=== PATIENT | male | born 1960 | race Caucasian/White ===

== ENCOUNTER → 2016-07-23 | Outpatient (CLI) | payer OTHER ==
[~2016-07-23] MED LIST: ASPI325T45 PO; CHOL200027 PO; PRLSR20 PO; ZCR40 PO
[2016-07-23 09:35] LABS: BASO % 0.8 %; BASO ABS # 0.06 K/uL (0-0.2); COMPLETE YES; EOS % 2.8 %; HEMATOCRIT 44.2 % (42-52); IG% 0.4 %; LYMPH ABS # 2.16 K/uL (1.2-3.4); MEAN CELL VOLUME 86.7 fL (80-100); MEAN CORPUSCULAR HEMOGLOBIN 29.2 pg (25-34); MEAN CORPUSCULAR HGB CONC 33.7 g/dl (32-36); MEAN PLATELET VOLUME 10.2 fL (7.4-10.4); MONO % 8.4 %; NEUT % 58.6 %; PLATELET COUNT 248 K/uL (130-400); WHITE BLOOD COUNT 7.46 K/uL (4.8-10.8)
[2016-07-23 09:51] LABS: BLOOD UREA NITROGEN 11 mg/dl (7-18); BUN/CREATININE RATIO 11.3 (10-20); CALCIUM 9.1 mg/dl (8.5-10.1); CARBON DIOXIDE 28 mmol/L (21-32); CHLORIDE 104 mmol/L (98-107); CREATININE 0.94 mg/dl (0.60-1.40); GLUCOSE 98 mg/dl (70-99); POTASSIUM 4.4 mmol/L (3.5-5.1); SODIUM 140 mmol/L (136-145)
== END | disposition home or self-care (01) ==
LOC: C.CPL 08:03
PROVIDERS: ATTEND Orthopaedic Surgery
DX: M65.331 Trigger finger, right middle finger (principal)

== ENCOUNTER 2017-03-08 15:55 | Emergency (ER) | payer OTHER ==
[~2017-03-08] VITALS: Ht 172.7 cm; Wt 108.0 kg
[2017-03-08 16:29] VITALS: BP 122/81; PULSE 94; TEMP 37.2; O2SAT 96; Ht 172.7 cm; Wt 108.0 kg
[2017-03-08] MEDS ORDERED: ALLO300T2 PO (17:02)
[2017-03-08] MEDS ORDERED: GENT0.3S6 OPL (17:02)
[2017-03-08] MEDS ORDERED: PROPARACAINE HCL 0.5% OP SOLN 15 ML BTL OP STA (17:27)
--- NOTE | 2017-03-08 18:14 | EMERGENCY ROOM VISIT NOTE ---
History First contact with patient: 17:15 Chief Complaint: EYE PAIN Stated Complaint: LEFT EYE PAIN History of Present Illness The patient is a 56 year old male who presents to the Emergency Room with complaints of severe left eye pain that has been going on for 5 days. The patient denies any injury to the eye. He simply woke up with it hurting. He also notes redness. His vision in the eyes blurry. He is very sensitive to light. He does not wear contacts. He denies any fever or chills. The I also hurts with movements of the eye. Review of Systems 6 system review negative. Please see pertinent positives in the history of present illness section. Past Medical/Surgical History Otherwise healthy Social History Smoking Status: Never Smoker Current/Historical Medications Scheduled Aspirin (Aspirin), 325 MG PO QAM Cholecalciferol (Vitamin D-3), 4,000 INTER.UNIT PO QAM Gentamicin Sulfate (Ophth) (Gentamicin 0.3% Oph), 1 DROP OPL Q4H Omeprazole (Prilosec), 20 MG PO QAM Simvastatin (Simvastatin), 40 MG PO QAM Scheduled PRN Allopurinol (Zyloprim), 300 MG PO DAILY PRN for Gout Flares Physical Exam Vital Signs Date Time Temp Pulse Resp B/P (MAP) Pulse Ox O2 Delivery O2 Flow Rate FiO2 03/08/17 16:29 37.2 94 18 122/81 96 Room Air Right Eye Acuity: 20/25 Left Eye Acuity: 20/200 Physical Exam VITALS: Vitals are noted on the nurse's note and reviewed by myself. Vital signs stable. GENERAL: 56-year-old male, very uncomfortable in appearance. SKIN: The skin was without rashes, erythema, edema, or bruising. HEAD: Normocephalic atraumatic. EYES: Pupils equal round and reactive to light and accommodation. Extraocular muscles intact. Significant conjunctival injection noted. No conjunctival hemorrhages noted. Insert Slit Lamp Exam Slit Lamp Examination was performed of the left eye(s). Alcaine drops were applied to the affected eye(s) for proper anesthetization. The affected eye(s) were stained with Fluorescein stain to precipitate adequate visualization of any conjunctival/scleral excoriations or ulcers. The patients face was comfortably rested on the chin guard of the slit lamp apparatus. The lights were dimmed and the affected eye(s) were thoroughly examined under microscopy using the blue light. No uptake was present In the left eye.. Additionally, the eye(s) were examined under microscopy using the regular light. Close examination revealed no corneal abnormalities. No hyphema.. Patient tolerated the procedure well and no complications were met. Pressures were obtained right eye: 13, 13, 14 left eye: 27, 29, 19 MUSCULOSKELETAL: Normal gait. Strength 5/5 throughout. NEURO: Patient was alert and oriented to person place and time. Normal sensation to touch. No focal neurological deficits. Medical Decision & Procedures ER Provider Diagnostic Interpretation: Orbital CT IMPRESSION: 1. No ocular or orbital masses identified. 2. No evidence of acute sinusitis. 3. If the patient has persistent unexplained orbital pain, ophthalmologic consultation should be obtained in follow-up Electronically signed by: Alvino Lakhani M.D. 03/08/2017 7:25 PM Dictated Date/Time: 03/08/2017 7:21 PM Medications Administered Medications (Trade) Dose Ordered Sig/Flaquito Route Start Time Stop Time Status Last Admin Dose Admin Proparacaine HCl (Alcaine 0.5% Oph Soln) 2 drops ONE STAT OP 03/08/17 17:27 03/08/17 17:28 DC 03/08/17 17:35 2 DROPS Ibuprofen (Motrin Tab) 600 mg NOW STAT PO 03/08/17 18:33 03/08/17 18:35 DC 03/08/17 19:05 600 MG Erythromycin (Erythromycin Oph Oint) 1 appln NOW ONCE OPL 03/08/17 20:15 03/08/17 20:16 DC 03/08/17 20:20 1 APPLN ED Course The patient was seen and examined A slip exam was performed CT of the orbits was performed and reviewed The case was discussed with my supervising physician and then Dr. Mark from ophthalmology. The patient was reassessed. We discussed the results of his workup. He voiced understanding. Erythromycin ointment was applied to the eye. Discharge instructions were reviewed, and he was discharged in good condition Medical Decision Differential diagnosis: Conjunctivitis, uveitis, foreign body, corneal abrasion , cellulitis, glaucoma This patient is a 56-year-old male that presents to the emergency department with continued left eye redness and pain. He also reported blurry vision in the left eye. No reported injury. On exam, he had significant injection and photo sensitivity. Hearing was also noted. The cornea was thoroughly examined. No corneal defect was noted. No hyphema. The patient complained of pain behind the eye. I did a CT of the orbits. This did not show any acute abnormality. The patient's eye pressures however were somewhat elevated. The case was discussed with DR. Mark from ophthalmology. He thought that the patient's gentamicin drops given to him earlier this week could be the culprit in causing eye irritation. He instructed me to discontinue those and put the patient on erythromycin ointment. He also told me to have patient call the office, and they'll follow up with him closely. This was conveyed to the patient. He was also instructed to return immediately with any new or worsening symptoms. This chart was completed in part utilizing [employer] Speech Voice Recognition software. Attempts were made to minimize the grammatical errors, random word insertions, pronoun errors and incomplete sentences. Any formal questions or concerns about the content, text or information contained within the body of this dictation should be directly addressed to the provider for clarification. Medication Reconcilliation Current Medication List: was personally reviewed by me Blood Pressure Screening Patient's blood pressure: Normal blood pressure Consults Consulting Physician: Dr. mark Impression Primary Impression: Left eye pain Departure Information Dispostion Home / Self-Care Condition GOOD Referrals Dami Gorman D.O. (PCP) Blayne Mark D.O. Patient Instructions My [facility] Additional Instructions You were evaluated in the emergency department today for eye pain. Please discontinue the gentamicin drops. Begin erythromycin ointment. Please apply to the eyelid every 6 hours Please call the rod greaser first thing tomorrow morning for a follow-up appointment Please continue to take ibuprofen 600 mg every 8 hours as needed for pain Percocet 1-2 tabs every 4 hours for severe pain. Do not drink alcohol or drive while taking this medication. This may be taken with ibuprofen, but avoid Tylenol. Please return immediately to the emergency department with any new or worsening symptoms.
[2017-03-08] MEDS ORDERED: OXYCODONE/ACETAMINOPHEN 5-325 TAB PO STA (18:33)
[2017-03-08] MEDS ORDERED: IBUPROFEN 600 MG TAB PO STA (18:33)
[2017-03-08] MEDS ORDERED: PERCOCET HOME PACK PO ONE (18:45)
--- NOTE | 2017-03-08 19:27 | DIAGNOSTIC IMAGING REPORT ---
CT ORBITS WITHOUT A WITH CONTRAST CT DOSE: 1017.05 mGy.cm CLINICAL HISTORY: Severe left orbital pain. TECHNIQUE: Unenhanced images were obtained through the orbits. The patient was rescanned in a dynamic helical fashion during intravenous administration of 98 cc of Optiray 320. Sagittal and coronal reformatted images were reviewed. A dose lowering technique was utilized adhering to the principles of ALARA. COMPARISON STUDY: None. FINDINGS: There is no evidence of acute sinusitis. No ocular masses are visualized. No retroconal masses are visualized. Postcontrast images reveal no pathologically enhancing lesions. IMPRESSION: 1. No ocular or orbital masses identified. 2. No evidence of acute sinusitis. 3. If the patient has persistent unexplained orbital pain, ophthalmologic consultation should be obtained in follow-up Electronically signed by: Alvino Lakhani M.D. 03/08/2017 7:25 PM Dictated Date/Time: 03/08/2017 7:21 PM
[2017-03-08] MEDS ORDERED: OPTIRAY 320 IV PRN (19:30)
[2017-03-08] MEDS ORDERED: ERYTHROMYCIN OP OINT 5 MG/GM 3.5 GM TUBE OPL ONE (20:15)
== END 2017-03-08 20:21 | disposition home or self-care (01) ==
LOC: C.EDB 15:56 → C.EDD 20:21
DX: H57.12 Ocular pain, left eye (principal); Z79.82 Long term (current) use of aspirin

== ENCOUNTER 2023-07-24 09:08 | Observation (INO) ==
--- NOTE | 2023-06-18 11:46 | PAT Medication Instructions ---
Medication Instructions Date of Service June 18, 2023 Home Medications aspirin 81 mg tablet,delayed release 81 mg PO QAM omeprazole 20 mg capsule,delayed release 20 mg PO QAM rosuvastatin 20 mg tablet 20 mg PO QAM ascorbic acid (vitamin C) 1,000 mg tablet (Vitamin C) 1 g PO QAM chlorpheniramine-phenylpropan 4 mg-37.5 mg tablet 1 tab PO QAM cholecalciferol (vitamin D3) 25 mcg (1,000 unit) tablet (Vitamin D3) 25 mcg PO QAM omega-3 fatty acids 1,000 mg PO QAM potassium 99 mg tablet 99 mg PO QAM zinc 50 mg tablet 50 mg PO QAM ASK your prescriber and surgeon aspirin 81 mg tablet,delayed release 81 mg PO QAM STOP taking 2 weeks before surgery (or as soon as possible if surgery is within 2 weeks) omega-3 fatty acids 1,000 mg PO QAM DO NOT take the morning of surgery ascorbic acid (vitamin C) 1,000 mg tablet (Vitamin C) 1 g PO QAM chlorpheniramine-phenylpropan 4 mg-37.5 mg tablet 1 tab PO QAM cholecalciferol (vitamin D3) 25 mcg (1,000 unit) tablet (Vitamin D3) 25 mcg PO QAM potassium 99 mg tablet 99 mg PO QAM zinc 50 mg tablet 50 mg PO QAM Take morning of surgery With a small sip of water, OTHERWISE NOTHING TO EAT OR DRINK AFTER MIDNIGHT: omeprazole 20 mg capsule,delayed release 20 mg PO QAM rosuvastatin 20 mg tablet 20 mg PO QAM Other Notes If you have any questions please call us at [phone] or [phone] or [phone] or [phone]
--- NOTE | 2023-06-23 12:11 | Anesthesiology Consultation ---
Date of Service June 23, 2023 Assessment & Plan (1) Encounter for pre-operative examination: - Check BSG AM DOS - Infectious disease screening: Per assessment on 06/23/23: No known infectious disease contacts or current infectious disease symptoms. No noted recent Covid positive test result. - Outpatient joint assessment: Pt currently scheduled for inpatient pathway. If surgeon requests review for outpatient joint pathway, patient is not recommended candidate for outpatient joint program from anesthesia standpoint based on available information. - S/P Left shoulder arthroscopy (05/07/23): regional + MAC at [facility] [place] Chart Review Chart Review: Acceptable Risk for Surgery and Patient seen in Pre Admission Testing Teaching & Discussion Pre-Anesthesia Teaching/Discussion Notes: Instructed NPO after midnight before surgery,except medications with 15 cc of water. Medication instructions provided according to the PAT guidelines. History Surgery Operation Date: 07/24/23 08:00 Proposed Procedures p Left Unicompartment Kne Arthroplasty vs Left Total Knee Arthroplasty - Daryl Hernandez, Height/Weight Height: 5 ft 7 in Weight: 123.2 kg Allergies Allergy/AdvReac Type Severity Reaction Status Date / Time No Known Allergies Allergy Mild Verified 06/18/23 08:46 Medications Home Medications Medication Instructions Recorded Confirmed Last Taken aspirin 81 mg tablet,delayed 81 mg PO QAM 11/28/19 06/18/23 05/06/23 release omeprazole 20 mg capsule,delayed 20 mg PO QAM 11/28/19 06/18/23 05/06/23 release rosuvastatin 20 mg tablet 20 mg PO QAM 04/29/23 06/18/23 05/06/23 ascorbic acid (vitamin C) 1,000 mg 1 g PO QAM 06/18/23 06/18/23 Unknown tablet (Vitamin C) chlorpheniramine-phenylpropan 4 1 tab PO QAM 06/18/23 06/18/23 Unknown mg-37.5 mg tablet cholecalciferol (vitamin D3) 25 25 mcg PO QAM 06/18/23 06/18/23 Unknown mcg (1,000 unit) tablet (Vitamin D3) omega-3 fatty acids 1,000 mg PO QAM 06/18/23 06/18/23 Unknown potassium 99 mg tablet 99 mg PO QAM 06/18/23 06/18/23 Unknown zinc 50 mg tablet 50 mg PO QAM 06/18/23 06/18/23 Unknown Past Medical History Medical History (Updated 06/23/23 @ 16:13 by Taylor Blue) GERD (gastroesophageal reflux disease) Gout History of COVID-19 02/2021- asymptomatic, resolved Hyperlipidemia Morbid obesity with BMI of 40.0-44.9, adult Osteoarthritis Prediabetes Diet managing Sleep apnea CPAP (compliant) Exercise / Class Metabolic Activity II 4-5 Yardwork/Stairs/Walk up hill (one FS (no CP, no SOB)) Past Family History Family History Sister Family history of diabetes mellitus Aunt No problems noted. Father Family hx of colon cancer Past Surgical History Surgical History H/O lymph node biopsy "Benign" History of cataract surgery B/L History of colonoscopy History of esophagogastroduodenoscopy (EGD) History of left knee surgery x2 meniscus History of repair of rotator cuff B/L Hx of vasectomy Nausea and vomiting after administration of anesthetic agent [address]; states that he ate after surgery and then became sick and vomited when he got home Status post arthroscopy of left shoulder Left shoulder arthroscopy (05/07/23): regional + MAC at [facility] Trigger finger Right [place] teeth removed Past Anesthesia History No Hx of Anesthesia Complications and No Family Hx of Anesthesia Complications History of PONV History of PONV (Since episode 2000, no similar issues since) and Hx of Motion Sickness Social History Smoking Status: Never smoker Do You Dip or Chew Tobacco: No Hx Alcohol Use: Yes Alcohol type: beer alcohol intake frequency: holidays/special occasions only Hx Substance Use: No substance use type: does not use Review of Systems Patient denies chest pain, shortness of breath, dyspnea on exertion, fever, chills, cough, wheezing, palpitations. Physical Exam Vital Signs VITALS BP 123/81 P 85 TEMP 98.7 SP02 95%RA RESP 18 PHYSICAL Full cervical extension range of motion. Full TMJ range of motion. TMD 4 finger breaths Mallampati Score III Dentition: intact Lungs: clear throughout to auscultation Cardiac: regular rate and rhythm, no murmurs noted Spine: normal Carotid arteries: negative bruit Extremities: no LE edema Trimmed kunz Thick neck Lab Results Anesthesia Preop Results Results Anesthesia Widget: WBC 9.36 K/ul (4.8-10.8) 06/23/23 Hgb 14.7 g/dl (14.0-18.0) 06/23/23 Hct 45.2 % (42.0-52.0) 06/23/23 Plt 241 K/uL (130-400) 06/23/23 Na 140 mmol/L (136-145) 06/23/23 K 4.3 mmol/L (3.5-5.1) 06/23/23 Cl 102 mmol/L (98-107) 06/23/23 CO2 31 mmol/L (21-32) 06/23/23 BUN 8 mg/dl (6-23) 06/23/23 Creat 0.80 mg/dl (0.6-1.4) 06/23/23 Glucose Level 119 mg/dl (70-99(Fasting)) H 06/23/23 PT 10.6 Seconds (9.0-12.0) 06/23/23 PTT 27 Seconds (21-31) 06/23/23 INR 1.0 (0.9-1.1) 06/23/23 HA1c 6.9 % (4.5-5.6) H 06/23/23 Blood Type A Positive 06/23/23 Antibody Screen NEGATIVE 06/23/23 Testing Electrocardiogram Date: 07/28/22 SB with sinus arrhythmia at 53bpm. "Otherwise normal ECG" No significant change compared to 10/21/2021 per fisheries enforcement officer comparison. Chest X-Ray Date: 07/28/22 FINDINGS: No pneumothorax. No pleural effusions. The cardiac silhouette is mildly enlarged. This may be accentuated by the AP portable technique. No new focal lung consolidations to suggest a pneumonia. No evidence for pulmonary edema. IMPRESSION: Mild cardiomegaly. Otherwise, no acute process within the chest.
--- NOTE | 2023-07-22 07:55 | History & Physical Report ---
Date of Service July 22, 2023 Assessment & Plan (1) Osteoarthritis of left knee: We will proceed with a left unicompartmental knee arthroplasty versus total knee arthroplasty. Postoperatively he will be started on aspirin for DVT prophylaxis and kept overnight in the hospital for postop medical management. He plans to go to [facility] physical therapy upon discharge. History of Present Illness Chief Complaint: Osteoarthritis of the left knee. Primary Care Provider: Petros Murphy PA-C Jeancarlos is a pleasant 63-year-old male who I did 2 knee arthroscopies on in the past 3 years. 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 The lateral and patellofemoral compartments have looked fine. His symptoms have waxed and waned over the years. They have been much worse recently. All of his pain is located medially. X-rays and clinical examination been diagnostic for medial compartment arthritis of the left knee. After failing conservative treatment, he has elected proceed with a left partial knee replacement surgery. Allergies Allergy/AdvReac Type Severity Reaction Status Date / Time No Known Allergies Allergy Mild Verified 06/18/23 08:46 Home Medications Medication Instructions Recorded Confirmed Type aspirin 81 mg tablet,delayed 81 mg PO QAM 11/28/19 06/18/23 History release omeprazole 20 mg capsule,delayed 20 mg PO QAM 11/28/19 06/18/23 History release rosuvastatin 20 mg tablet 20 mg PO QAM 04/29/23 06/18/23 History ascorbic acid (vitamin C) 1,000 mg 1 g PO QAM 06/18/23 06/18/23 History tablet (Vitamin C) chlorpheniramine-phenylpropan 4 1 tab PO QAM 06/18/23 06/18/23 History mg-37.5 mg tablet cholecalciferol (vitamin D3) 25 25 mcg PO QAM 06/18/23 06/18/23 History mcg (1,000 unit) tablet (Vitamin D3) omega-3 fatty acids 1,000 mg PO QAM 06/18/23 06/18/23 History potassium 99 mg tablet 99 mg PO QAM 06/18/23 06/18/23 History zinc 50 mg tablet 50 mg PO QAM 06/18/23 06/18/23 History Past Med/Surg History Medical History Prediabetes Diet managing Morbid obesity with BMI of 40.0-44.9, adult History of COVID-19 02/2021- asymptomatic, resolved Gout Osteoarthritis GERD (gastroesophageal reflux disease) Hyperlipidemia Sleep apnea CPAP (compliant) Surgical History Status post arthroscopy of left shoulder Left shoulder arthroscopy (05/07/23): regional + MAC at [facility] [place] History of left knee surgery x2 meniscus History of cataract surgery B/L Nausea and vomiting after administration of anesthetic agent [address]; states that he ate after surgery and then became sick and vomited when he got home Trigger finger Right History of repair of rotator cuff B/L Hx of vasectomy History of esophagogastroduodenoscopy (EGD) History of colonoscopy [place] teeth removed H/O lymph node biopsy "Benign" Family History Sister Family history of diabetes mellitus Aunt No problems noted. Father Family hx of colon cancer Social History Smoking Status: Never smoker Second Hand Exposure: No; Do You Dip or Chew Tobacco: No; Tobacco Cessation Education Requested by Patient: No Hx Alcohol Use: Yes Alcohol type: beer Hx Substance Use: No Preferred Language: Faroese Communication Ability: Effective Manager Of Allied Health Services Required: No Beliefs That Will Affect Care: None Current Living Situation: Spouse Current Living Situation Comment: lives with ex- Other Information That Helps Us Care for You: No Feels Safe at Home: Yes Safety Concerns: Feels Safe At This Time Assistive Devices: CPAP and Glasses Review of Systems All systems reviewed & are unremarkable except as noted in HPI & below. Physical Exam On physical examination left knee, he has a slightly antalgic gait. He has tenderness palpation of the distal medial femoral condyle and over the medial joint line.. Constitutional WD/WN, vitals as above Eyes PERRL, conjunctivae normal, anicteric sclerae ENMT external ear and nose normal, oropharynx normal Neck trachea midline, no thyromegaly Respiratory normal respiratory effort Cardiovascular RRR, no murmur, no edema Gastrointestinal (Abdomen) normal bowel sounds, soft, nontender, no hepatosplenomegaly Psychiatric A+Ox3, euthymic affect Results & Data Results & Data Laboratory Results . Diagnostic Findings X-rays of the left knee show advanced osteoarthritis with some joint space narrowing.. PG Care Time/CCT Total # of Minutes Spent Total Time Spent with Patient: Total time spent is greater than 50% in coordination of care (as documented) at patient's floor/unit and/or counseling patient: Coding Level of Care Code None Diagnoses Osteoarthritis of left knee M17.12
[~2023-07-24 09:08] MED LIST changes: -ASPI325T45 PO; +BUPIVACAINE 0.5 % 5 MG/1 ML PF 10ML VIAL ONE; -CHOL200027 PO; +DEXAMETHASONE SOD INJ 4 MG/ML VIAL ONE; -PRLSR20 PO; +ROPIVACAINE 0.5% 5 MG/ML 30 ML VIAL ONE; -ZCR40 PO
[2023-07-24] MEDS ORDERED: PROMETHAZINE HCL 6.25 MG in SODIUM CHLORIDE 0.9% 50 ML IV PRN (09:56)
[2023-07-24] MEDS ORDERED: ePHEDrine sulfate 50 MG/ML AMP IV PRN (09:56)
[2023-07-24] MEDS ORDERED: ATROPINE SULFATE 0.1 MG/ML 10ML SYR IV PRN (09:56)
[2023-07-24] MEDS ORDERED: HYDROmorphone INJ 2 MG/ML SYR/VIAL IV PRN (09:56)
[2023-07-24] MEDS: LR 500ML BOLUS, THEN 15ML/HR IV SCH (10:03)
[2023-07-24] MEDS: FAMOTIDINE 20 MG TAB PO SCH (10:06)
[2023-07-24] MEDS: dexAMETHasone**PF** 10 MG/ML VIAL IV SCH (10:06)
[2023-07-24] MEDS: SCOPOLAMINE 1 MG TDSY TD STA (10:06)
[2023-07-24] MEDS: GABAPENTIN 600 MG DOSE PO SCH (10:06)
[2023-07-24] MEDS: ACETAMINOPHEN 500 MG TAB PO SCH ×2 (10:07→15:13)
[2023-07-24] MEDS ORDERED: PROPOFOL IV EMULSION 10 MG/ML 20 ML VIAL IV ONE (10:33)
[2023-07-24] MEDS ORDERED: MIDAZOLAM HCL 1 MG/ML 2ML VIAL ONE (10:33)
--- NOTE | 2023-07-24 10:36 | History & Physical Bridge Note ---
Date of Service July 24, 2023 History & Physical Bridge Note I have examined the patient, reviewed the History & Physical and in the interval since the performance of the History & Physical I have noted the following changes of clinical significance: no changes noted
[2023-07-24] MEDS: TRANEXAMIC ACID 1,000 MG **IV Pre-op IV SCH (11:08)
[2023-07-24] MEDS: ceFAZolin 3000MG 3,000 MG/72.5 ML BAG IV SCH (11:31)
[2023-07-24] MEDS ORDERED: DexMEDEtomidine HCL IV 100 MCG/ML VIAL IV ONE (11:46)
[2023-07-24] MEDS: ORTHO JOINT ANESTHETIC ONE (12:31)
[2023-07-24] MEDS: ROPIV 0.5% 246mg, Ketorolac 30mg, EPINEPHrine 0.5mg in NSS INFIL SCH (12:31)
[2023-07-24] MEDS: TRANEXAMIC ACID 1,000 MG **IV Intra-op IV SCH (12:48)
--- NOTE | 2023-07-24 13:36 | XRay Report ---
TWO VIEWS LEFT KNEE CLINICAL HISTORY: Postoperative examination. FINDINGS: AP and crosstable lateral portable views of the left knee are obtained. Comparison is made to preoperative examination dated 03/11/2023. A hemiarthroplasty in the medial compartment of the lef t knee is in near anatomic alignment. There are patellar enthesophytes. A calcified fabella is incide ntally noted. There are expected postoperative changes around the knee including skin clips, soft [place] edema, and subcutaneous gas. There is apparent cortical irregularity along the medial aspect of t he proximal tibial metaphysis. IMPRESSION: 1. Expected postoperative changes status post hemiarthroplasty of the left knee. 2. There is apparent cortical irregularity along the medial tibial metaphysis which may be artifactua l. Fracture is not excluded. Attention at follow-up is recommended. ACT 112: Negative or not required by law. Electronically signed by: Ramo Clark M.D. 07/24/2023 1:34 PM
--- NOTE | 2023-07-24 14:54 | XRay Report ---
XR knee LT 1 or 2V routine CLINICAL HISTORY: S/P Left Uni Knee Arthroplasty TECHNIQUE: 2 views of the left knee were obtained. Comparison: Comparison is made to knee radiographs 07/24/2023 and knee radiographs 03/11/2023 FINDINGS: Redemonstration of postsurgical changes of left knee arthroplasty. Again noted is irregularity of the medial tibial metaphysis. No joint effusion is seen. No soft tissue abnormality is seen. IMPRESSION: Cortical irregularity is again noted in the medial tibial metaphysis, similar in appearance to prior exam. This was not seen on the preoperative exam and a fracture cannot be excluded. ACT 112: Negative or not required by law. Electronically signed by: Leonardo Shaw M.D. 07/24/2023 2:53 PM
[2023-07-24] MEDS ORDERED: bisacodyL 10 MG SUPP PR PRN (14:55)
[2023-07-24] MEDS ORDERED: METOCLOPRAMIDE HCL INJ 5 MG/ML 2 ML VIAL IV PRN (14:55)
[2023-07-24] MEDS ORDERED: MAGNESIUM HYDROXIDE SUSP 30 ML UDC PO PRN (14:55)
[2023-07-24] MEDS ORDERED: NALOXONE HCL 0.4 MG/1 ML VIAL/CARP IV PRN (14:55)
[2023-07-24] MEDS ORDERED: HYDROmorphone INJ 0.5 MG/0.5 ML SYR IV PRN (14:55)
[2023-07-24] MEDS ORDERED: oxyCODONE HCL IR 5 MG TAB (IMMEDIATE RELEASE) PO PRN (14:55)
[2023-07-24] MEDS ORDERED: ONDANSETRON INJ 2 MG/ML 2 ML VIAL IV PRN (14:55)
[2023-07-24] MEDS: LR 60ML/HR IV SCH (14:57)
--- NOTE | 2023-07-24 14:58 | Operative Report ---
PG Post Operative Report Pre & Post Diagnosis Operation Date: 07/24/23 11:00 Pre-Op Diagnosis: Left Knee Degenerative Joint Disease Post-Op Diagnosis: Left Knee Degenerative Joint Disease I identified the patient and participated in the time-out.: Yes Procedure Operation Date: 07/24/23 11:00 Actual Procedures p Left Unicompartment Knee Arthroplasty (Left) - Daryl Hernandez DO Surgeon Daryl Hernandez DO Data Analyst Report Writer Daryl Hampton PA-C Estimated Blood Loss 30 Findings Consistent with Post-Op Diagnosis Specimens Left femoral and tibial bone Description of Procedure Implants used: I used a Silvestre persona partial knee replacement system with a size 5 femur, size F tibia, and an 8 mm polyethylene insert. July 24, [address] [facility] for the above procedure. He was seen in the preoperative holding area and the operative extremity identified and signed. He was given a preoperative antibiotic, a spinal anes thetic, and a regional block. He is taken back to the operating room and laid on table in supine position. He was put under basic sedation. The left knee was prepped and draped sterile fashion. A timeout was done. The patient and the operative extremity was properly identified. A midline incision was made just medial to the patella. Dissection was taken down to the extensor mechanism. A small mid vastus arthrotomy was used. The medial retinaculum was released. The fat pad was left intact. The ACL and lateral compartment were intact. There was advanced arthritis in the medial compartment. I decision was made to proceed with a partial knee replacement surgery. An external tibial guide was placed. 4 mm was resected off the proximal tibia. The leg was brought to full extension and the distal femur was resected. The knee was then flexed. The distal femur measured to be a size 5. Posterior and chamfer cuts were made. 2 peg holes were drilled. The tibia was then exposed. The tibia measured to be a size F. A trial tibial plate was placed and 2 peg holes were drilled. The knee was then flexed. The femoral component was then impacted into place. An 8 mm polyethylene implant was then snapped into place. The knee was brought through full range of motion and felt to be stable. The components were removed. The final size 5 femoral component and size F tibial component were then cemented in place. Once cement had dried, a size 8 mm polyethylene insert was then snapped into place. The knee was brought through full range of motion and felt to be stable. The wound was then irrigated. Hemostasis was obtained. The extensor mechanism was closed with #1 Vicryl suture. Skin was closed with 2-0 Vicryl, 3-0 V-Loc suture, and adam. He was then placed in a soft compressive dressing. He was then transferred to a [facility]. He was taken to the postanesthesia care unit in stable condition. He tolerated the procedure well. Daryl Hampton PA-C, was present for the entire procedure. He was critical for patient positioning, prepping, draping, retraction exposure, wound closure and application of sterile dressing. I attest to the content of the Intraoperative Record and any orders documented therein. Any exceptions are noted below.
[2023-07-24] MEDS: SODIUM CHLORIDE 0.9% 1,000 ML IV SCH (15:07)
[2023-07-24] MEDS: KETOROLAC 30 MG/ML VIAL IV SCH (15:14)
--- NOTE | 2023-07-24 15:14 | Anesthesiology Progress Note ---
Date of Service July 24, 2023 Anesthesia Post Procedure Vital Signs Vital Signs: Temp Pulse Pulse Pulse Resp BP Pulse Ox 07/24/23 14:50 36.6 C 58 L 16 119/72 96 07/24/23 14:35 59 L 16 146/84 H 96 07/24/23 14:25 51 L 18 119/71 98 07/24/23 14:15 56 L 15 129/67 95 07/24/23 14:05 60 17 125/81 95 07/24/23 13:55 58 L 18 134/75 95 07/24/23 13:45 36.3 C L 51 L 15 151/83 H 96 07/24/23 13:35 76 14 131/56 L 95 07/24/23 13:25 71 16 146/80 H 96 07/24/23 13:15 65 18 139/76 96 07/24/23 13:07 36.4 C L 74 16 141/79 H 98 07/24/23 10:16 37.0 C 78 17 131/61 96 O2 Del Method O2 Flow Rate 07/24/23 14:50 Room Air 07/24/23 14:35 Room Air 07/24/23 14:25 Room Air 07/24/23 14:15 Room Air 07/24/23 14:05 Room Air 07/24/23 13:55 Room Air 07/24/23 13:45 Room Air 07/24/23 13:35 Room Air 07/24/23 13:25 Room Air 07/24/23 13:15 Nasal Cannula 2 07/24/23 13:07 Nasal Cannula 2 07/24/23 10:16 Room Air Transfer of Care Handoff Completed per policy Notes Mental Status: alert / awake / arousable and participated in evaluation Nausea / Vomiting: adequately controlled Pain: adequately controlled Airway Patency, RR, SpO2: stable & adequate BP & HR: stable & adequate Hydration State: stable & adequate Neuraxial Anesthesia: was administered and sensory block is resolving Anesthetic Complications: no major complications apparent and Pt Satisfied with anesthetic care
[2023-07-24] MEDS ORDERED: CHECK SCOPOLAMINE PATCH PLACEMENT SCH (16:00)
[2023-07-24] MEDS: ceFAZolin 2000MG 2,000 MG/15 ML SYR IV SCH (18:27)
[2023-07-24] MEDS: SENNA 8.6 MG TAB PO SCH (21:13)
[2023-07-24] MEDS: ASPIRIN 81 MG ECTAB PO SCH (21:13)
[2023-07-24] MEDS: DOCUSATE SODIUM 100 MG CAP PO SCH (21:13)
[2023-07-25] MEDS: dexAMETHasone 4 MG TAB PO SCH (08:04)
[2023-07-25] MEDS: MULTIVITAMIN TAB PO SCH (08:04)
[2023-07-25] MEDS: ROSUVASTATIN CALCIUM 20 MG TAB PO SCH (08:04)
[2023-07-25] MEDS: PANTOprazole 40 MG TAB PO SCH (08:05)
[2023-07-25] MEDS ORDERED: NON-FORMULARY MEDICATION (Potassium 99 mg Tablet) PO SCH (09:00)
--- NOTE | 2023-07-25 09:24 | Orthopedic Progress Note ---
Date of Service July 25, 2023 Assessment & Plan (1) Status post left partial knee replacement: Overall he is doing very well. He is not having much pain in the left knee. I described the postoperative x-rays to him. I told him about the small hairline fracture. I want him to be 50% weightbearing with a cane or a walker for at least the first 2 weeks. Will get repeat x-rays when I see him in the office in 2 weeks and discuss progressing his ambulation at that time. He is on aspirin for DVT prophylaxis. He can be discharged home later today. The nursing staff can change his dressing after physical therapy. I will see him back in the office in 2 weeks. Sea Arshad was seen and examined at bedside this morning. Overall is doing very well. Is not having much pain in the left knee. Has been up and ambulating with a walker. He has no complaints.. Review of Systems All systems reviewed & are unremarkable except as noted in HPI & below. Physical Exam On physical examination of the left knee, the dressing is clean and dry. His legs out full extension. He has active dorsiflexion plantarflexion of the left ankle.. Results & Data Results & Data Laboratory Results . Diagnostic Findings Postoperative x-rays of the left knee show the implant to be in good alignment. There was a small hairline fracture. A questionable fracture. It extended down the medial tibial plateau. We did repeat the x-rays. He did show that small hairline break in the medial cortex.. PG Care Time/CCT Total # of Minutes Spent Total Time Spent with Patient: Total time spent is greater than 50% in coordination of care (as documented) at patient's floor/unit and/or counseling patient: Coding Level of Care Code 97873 Post Operative Follow-Up Diagnoses Status post left partial knee replacement Z96.652
--- NOTE | 2023-07-25 09:25 | Discharge Summary ---
Date of Service July 25, 2023 Admission HPI (Per Admitting) Jeancarlos is a pleasant 63-year-old male who I did 2 knee arthroscopies on in the past 3 years. 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 The lateral and patellofemoral compartments have looked fine. His symptoms have waxed and waned over the years. They have been much worse recently. All of his pain is located medially. X-rays and clinical examination been diagnostic for medial compar tment arthritis of the left knee. After failing conservative treatment, he has elected proceed with a left partial knee replacement surgery. Admission Exam (Per Admitting) On physical examination left knee, he has a slightly antalgic gait. He has tenderness palpation of the distal medial femoral condyle and over the medial joint line.. Principal Diagnosis Same as "Discharge Diagnosis" noted below under Discharge Instructions. Discharge Exam On physical examination of the left knee, the dressing is clean and dry. His legs out full extension. He has active dorsiflexion plantarflexion of the left ankle.. Discharge Data Procedures Performed Operation Date: 07/24/23 11:00 Actual Procedures p Left Unicompartment Knee Arthroplasty (Left) - Daryl Hernandez DO Ordered Studies 07/24/23 05:00 US - OR guided needle placemen Routine Hospital Course (1) Status post left partial knee replacement: On July 24, 2023 Jeancarlos arrived at [facility] and underwent a left partial knee replacement without complication. Postoperatively the x-rays showed a small nondisplaced questionable hairline fracture of the medial tibial plateau. He was started on aspirin for DVT prophylaxis and transferred to the general orthopedic floors. His hospital course was uneventful. On postop day #1, his vital signs were stable and his pain was well-controlled. He was able to participate well with physical therapy. He was 50% partial weightbearing on the left leg for the first 2 weeks. I described the small hairline fracture with him. He was then discharged home. He will follow-up with orthopedics in 2 weeks. PG Care Time/CCT Total # of Minutes Spent Total Time Spent with Patient: Total time spent is greater than 50% in coordination of care (as documented) at patient's floor/unit and/or counseling patient: Discharge Plan Discharge Items Patient Disposition: Home - Self-Care Reason For Visit: Left Knee Degenerative Joint Disease Discharge Diagnosis: Left partial knee replacement Activity: Per Instructions section Non-emergency contact: Surgeon Call non-emergency contact if: your wound has increased redness and your wound has increased drainage Follow-up/Referrals: Petros Murphy PA-C [Primary Care Provider] - Diet: Regular Addtl Attending Provider Instructions: Activity and Therapy Recommendations: 50% partial weightbearing with a cane or walker for first 2 weeks. * If you are using [facility] then therapy will be provided at your home until they feel you have accomplished all of your goals. * If you are using [facility] then Physical Therapy will be provided until they feel you are ready to start Outpatient Physical Therapy. * If you are not using home therapy then Outpatient Physical Therapy should start about 3-5 days from your day of surgery. Therapy will last about 6-10 weeks * It is important not to put a pillow under your knee when you are relaxing or sleeping. It is just as important to make sure you are getting your knee perfectly straight as it is to regain your knee bend. * You were shown a series of exercises in the hospital. Do these exercises three times each day including the exercises you were shown in physical therapy. * Get up and walk several times each day. For the first four weeks, try not to stand or walk for more than one hour at a time. If you do stand or walk for more than one hour, you will not hurt anything, but your leg will likely swell. * As you feel comfortable, you may change from the walker or crutches to a cane and then to independent walking. Medications: * Narcotic You will likely be sent home from the hospital with a prescription for the narcotic pain medication that worked best throughout your stay. * Cefadroxil -take the antibiotic twice a day for 10 days to help with infection. * Aspirin Most patients will be required to take Aspirin 81mg twice a day for 6 weeks after surgery. This is obtained [id number] and a prescription is not necessary. * Other medications may be prescribed for specific circumstances. If you have any questions, please call the office at . * Resume previous home medications unless otherwise instructed TEDs/Elastic Stockings: The white elastic stockings help limit swelling and prevent blood clots from forming in your legs.~ The more you wear them, the more they work. Wear them for six weeks. Dressing Care: The dressing can be changed after physical therapy on postop day #1. Daily dry dressing changes for a few days, especially if the incision is still draining some. If the incision is not draining then you may leave the adam open to air. If there is a little bit of drainage or if the adam are getting stuck on your clothing then cover the incision with a dry dressing. The adam will be removed at your 2 week follow-up appointment. Showering: You may shower 5 days from the day of surgery as long as the incision is no longer draining. You may shower with the adam exposed. Let soapy water run over the adam and pat them dry. Do not scrub or soak the incision. Things To Watch For: * Drainage from the incision site that occurs more than one week after your surgery. * Increased redness at the incision site. * Fever above 102 degrees Fahrenheit. * Unusual chest pain or shortness of breath. * Call [facility] at with any of the above problems Follow-Up Visit: Follow-up with Dr. Hernandez's PA (Daryl Hampton) 2-3 weeks after your day of surgery. He will remove your adam and answer any questions. If you have any additional questions or concerns, Dr Hernandez is usually in the office at the same time and will be available An appointment was probably scheduled when you signed-up for surgery in the office. If you have any questions call Office Instructions: More detailed instructions as well as Frequently Asked Questions were provided in a folder by our office when you signed-up for surgery. Please review these instructions when you get home. If you have any further questions or concerns, please feel free to call the office at [phone] Pending Studies at Discharge: No Stand-Alone Forms: [facility], Pain - Opioid Pain Management Medications and DC Order Prescriptions: New cefadroxil 500 mg capsule 500 mg PO BID 10 Days Qty: 20 0RF acetaminophen-codeine 300-15 mg tablet 1 tab PO Q6H PRN (Reason: pain) Qty: 30 0RF Continued omeprazole 20 mg Capsule,Delayed Release(Dr/Ec) 20 mg PO QAM rosuvastatin 20 mg Tablet 20 mg PO QAM ascorbic acid (vitamin C) [Vitamin C] 1,000 mg Tablet 1 g PO QAM potassium 99 mg Tablet 99 mg PO QAM zinc 50 mg Tablet 50 mg PO QAM omega-3 fatty acids Capsule 1,000 mg PO QAM cholecalciferol (vitamin D3) [Vitamin D3] 25 mcg (1,000 unit) Tablet 25 mcg PO QAM chlorpheniramine-phenylpropan 4-37.5 mg Tablet 1 tab PO QAM Changed aspirin 81 mg Tablet,Delayed Release (Dr/Ec) 81 mg PO BID 42 Days Qty: 84 0RF Discharge Orders: Discharge Order (Routine); Ordered 07/25/23 Ordered By: Daryl Adkins/Other Patient Handouts: DVT Post Op Prevention Admission Data Admit Date/Time: 07/24/23 13:04 Attending Provider: Daryl Hernandez Admit Provider: Daryl Hernandez Primary Care Provider: Petros Murphy Other Interventions: Discharge Summary Assessment (RN) Last Done: 07/25/23 09:09
== END 2023-07-25 10:19 | disposition home or self-care (01) ==
LOC: 3E 09:08 → ASU 09:08